=== PATIENT | female | born 2000 | race Caucasian/White ===

== ENCOUNTER 2022-03-17 08:15 | Emergency (ER) | payer OTHER ==
[~2022-03-17] VITALS: Ht 167.6 cm; Wt 68.0 kg
[2022-03-17 08:18] VITALS: BP_SYST 128
--- NOTE | 2022-03-17 08:49 | NUR ---
Patient to ER bed 06 to gown for evaluation. Side rails up.
--- NOTE | 2022-03-17 09:01 | NUR ---
PT HERE WITH C/O RT SIDED VAGINAL PAIN X 5 DAYS, DENIES FEVERS/VAGINAL DISCHARGE/VAG ODOR, NO ITCHING. VERY PAINFUL TO TOUCH AND SWOLLEN.
--- NOTE | 2022-03-17 09:05 | NUR ---
DR QUEEN IN ROOM FOR EXAM, FEMALE RN IN ROOM TO QUARTER BACKER
[2022-03-17] MEDS ORDERED: BACITRACIN 1 GM OINT TP ONE (09:15)
[2022-03-17] MEDS ORDERED: LIDOCAINE 1% 10 MG/ML, 20 ML MDV INJ ONE (09:15)
[2022-03-17] MEDS ORDERED: KETAMINE HCL 500 MG/10 ML VIAL IVP ONE (09:15)
[2022-03-17] MEDS ORDERED: MIDAZOLAM HCL 5 MG/5 ML VIAL IVP ONE (09:15)
[2022-03-17] MEDS ORDERED: DIPHTH,PERTUSS(ACELL),TET VAC 0.5 ML VIAL (Tdap) I.M. ONE (09:15)
--- NOTE | 2022-03-17 10:16 | NUR ---
CONSENT FORM OBTAINED. MODEARTE SEDATION STARTED, RT AT BEDSIDE.. DR QUENE AT BEDSIDE. MED GIVEN ORDERED. TIMEOUT PERFORMED BEFORE PROCEDURE.
[2022-03-17] MEDS ORDERED: IBUP-1969 PO (10:31)
[2022-03-17] MEDS ORDERED: CLIN-142 PO (10:31)
--- NOTE | 2022-03-17 11:20 | NUR ---
PT TOLEARTED PROCEDURE WELL, SEE MOD SEDATION FORM FOR DETAILS.
--- NOTE | 2022-03-17 12:01 | NUR ---
Patient given written and verbal discharge instructions and verbalizes understanding. ER MD discussed with patient the results and treatment provided. Patient in stable condition. ID arm band removed. IV catheter removed intact and dressing applied, no active bleeding. Rx of Clindamycin, Ibuprofen given. Patient educated on pain management and to follow up with PMD. Pain Scale . Opportunity for questions provided and answered. Medication side effect fact sheet provided.
[2022-03-17 14:20] VITALS: BP_SYST 121
== END 2022-03-17 12:01 | disposition home or self-care (01) ==
LOC: SED 08:15
DX: L02.215 Cutaneous abscess of perineum (principal); Z79.899 Other long term (current) drug therapy
CPT/HCPCS: 99285; 56405; 96374; 90715; 90471; 99152; J2001; J2250